=== PATIENT | male | born 1985 | race Two or more races ===

== ENCOUNTER 2019-02-17 12:18 | Emergency (ER) | payer SELFPAY ==
[~2019-02-17] VITALS: Ht 172.7 cm; Wt 95.3 kg
--- NOTE | 2019-02-17 12:26 | NUR ---
BIB [facility] FROM A CONSTRUCTION SITE, S/P WITNESSED SEIZURE, (+) TONGUE TRAUMA BLOOD SUGAR 131. PT HAS NO RECOLLECTION OF EVENT. DENIES PAIN, SOB, DIZZINESS, WEAKNESS. SEIZURE PRECAUTIONS IMPLEMENTED. HOOKED TO MONITOR AND MADE COMFORTABLE. READY FOR EVAL.
[2019-02-17] MEDS ORDERED: LEVETIRACETAM (500MG) 500 MG in IV NS 0.9% 100 ML IV ONE (12:30)
[2019-02-17 12:46] LABS: BASOPHILS # (AUTO) 0.1 /CMM (0.0-0.2); BASOPHILS % (AUTO) 0.4 % (0.0-2.0); EOSINOPHILS % (AUTO) 0.1 % (0.0-6.0); HEMATOCRIT 47 % (39-51); HEMOGLOBIN 15.6 g/dL (13.5-17.5); LYMPHOCYTES # (AUTO) 1.7 /CMM (0.8-4.8); MEAN CORPUSCULAR HGB CONC 33 g/dl (31.0-36.0); MEAN CORPUSCULAR VOLUME 91 fL (80-96); MONOCYTES # (AUTO) 0.9 /CMM (0.1-1.30); MONOCYTES % (AUTO) 6.9 % (2.0-12.0); NEUTROPHILS # (AUTO) 10.7 /CMM (1.8-8.9); NEUTROPHILS % (AUTO) 79.6 % (43.0-81.0); PLATELET COUNT (AUTO) 340 /CMM (150-450); RED BLOOD CELL COUNT(AUTO) 5.12 MIL/uL (4.5-6.0); WHITE BLOOD COUNT (AUTO) 13.4 K/uL (4.3-11.0)
[2019-02-17 12:54] LABS: CALCIUM, SERUM 9.6 mg/dL (8.5-10.1); CARBON DIOXIDE 27 mmol/L (21-32); CHLORIDE 96 mmol/L (98-107); CREATININE 1.6 mg/dL (0.6-1.3); GLUCOSE 145 mg/dL (74-106); POTASSIUM 4.2 mmol/L (3.5-5.1); SODIUM SERUM 138 mmol/L (136-145); UREA NITROGEN, BLOOD 14 mg/dL (7-18)
[2019-02-17 12:55] LABS: ALCOHOL, BLOOD < 3 mg/dL (0-0)
--- NOTE | 2019-02-17 13:27 | NUR ---
PT C/O FEELING ANXIOUS. MD NOTIFIED
[2019-02-17] MEDS ORDERED: LORAZEPAM INJ 2 MG/ML VIAL IV ONE (13:30)
[2019-02-17] MEDS ORDERED: LORAZEPAM INJ 2 MG/ML VIAL ONE (13:31)
--- NOTE | 2019-02-17 14:12 | NUR ---
PT TAKEN TO CT VIA [facility]
--- NOTE | 2019-02-17 15:40 | NUR ---
IV removed. Catheter intact and site benign. Pressure and 4x4 applied to site. No bleeding noted.Patient discharged to home in stable condition. Written and verbal after care instructions given. Patient verbalizes understanding of instruction.
[2019-02-17 17:24] VITALS: BP 118/78
== END 2019-02-17 15:40 | disposition home or self-care (01) ==
LOC: ER 12:20
DX: R56.9 Unspecified convulsions (principal); S00.512A Abrasion of oral cavity, initial encounter; Z60.2 Problems related to living alone; X58.XXXA Exposure to other specified factors, initial encounter; Y93.89 Activity, other specified; Y92.89 Other specified places as the place of occurrence of the external cause; Y99.8 Other external cause status
CPT/HCPCS: 36415; 70450; 80048; 80307; 85025; 96365; 96375; 99284; J1953; J2060; J7030; G0480